=== PATIENT | male | born 1980 | race Caucasian/White ===

== ENCOUNTER 2018-04-18 06:57 | Emergency (ER) | payer SELFPAY ==
[2018-04-18 06:59] VITALS: BP 157/89; PULSE 86; RESP 16; TEMP 36.4; O2SAT 95; BMI 45.6
--- NOTE | 2018-04-18 07:35 | ED.VISSUMM ---
- ER Visit Summary Date of Service: 04/18/18 Chief Complaint: Right ear pain History of Present Illness: The patient is a 37 M who recently moved back into town from [place]. He does not have a primary care physician. He reports that over the past 3 days he has had a cough that is productive of green sputum, sore throat, and congestion. He reports that the symptoms are improving. However, yesterday he developed a pain in his right ear. Describes it as a dullness that is worsened by leaning his head to the right or forward. He is taking Advil Cold and Sinus and NyQuil with some relief. Pain is now 10 worsening a 10 currently. Physical Examination: Vitals: Stable. Afebrile. General: Well-nourished and well-developed. Head: Normocephalic atraumatic. HEENT: Pharyngeal erythema. Tonsils are absent. No cervical lymphadenopathy. Erythema, dullness, and lasts of landmarks behind the right TM. Left TM is normal. Neck: Supple, no lymphadenopathy. No JVD. Nontender. Cardiovascular: Regular rate and rhythm. No murmurs. Respiratory: No respiratory distress. Clear to auscultation bilaterally. Abdominal: Soft, nontender, nondistended, normal bowel sounds. No guarding, rebound, or peritoneal signs. Back: Nontender. Extremities: Nontender, no edema. Skin: Normal color, no rash. Neurologic: Alert and oriented ?3. Cranial nerves II through XII are intact. Normal strength and sensation. Psych: Normal affect. Emergency Department Course and Treatment: Patient was treated with naproxen and amoxicillin. He is resting comfortably. Treatment Plan: Patient will be discharged with amoxicillin and 10 [place]. Instructed to follow-up with Dr. Lito Jurado in 1 week for another exam. Return to the emergency department for any worsening symptoms. Disposition: To home in improved and stable condition. Impression: 1. URI. 2. Right otitis media. This note was generated with [employer] dictation software. It may contain incorrect words, spelling, and punctuation that were not noted in review of the chart prior to signing ED Disposition - Plan for ED Patient: Disposition: Home or Assisted Living Chief Complaint: Ear Problem Instructions: ED Otitis Media Acute Adult Prescriptions: Hydrocodone Bitart/Apap 5-325 [[place] 5MG-325MG] 1 tablet PO Q4H PRN PRN 2 Days #10 tablet PRN Reason: Pain Amoxicillin 500 mg PO TID #30 tablet Referrals: Lito Jurado MD [STAFF PHYSICIAN] - 1-2 Weeks
[2018-04-18] MEDS: Naproxen 250 MG Tablet 500 MG PO (07:59)
[2018-04-18] MEDS: AMOXICILLIN 500 MG CAPSULE PO (07:59)
== END 2018-04-18 08:00 | disposition home or self-care (01) ==
LOC: ED 07:17
PROVIDERS: Emergency Provider Emergency Medicine
DX: J06.9 Acute upper respiratory infection, unspecified (principal); H66.91 Otitis media, unspecified, right ear; F17.200 Nicotine dependence, unspecified, uncomplicated
CPT/HCPCS: 99283

== ENCOUNTER → 2019-03-17 14:14 | Outpatient (CLI) | payer BC, SELFPAY ==
[2019-03-17 16:08] LABS: ALB/GLOB Ratio 1.1 RATIO (0.9-2.4); AST(SGOT) 18 U/L (15-37); Alanine Aminotransfer ALT/SGPT 44 U/L (16-61); Albumin, Serum 3.8 g/dL (3.2-5.0); Alkaline Phosphatase 100 U/L (45-117); Anion Gap 7 (5-15); BUN 15 mg/dL (7-18); BUN/Creat Ratio 15.9 RATIO (10-20); Calcium,Total 8.8 mg/dL (8.5-10.1); Chloride 106 mmol/L (98-107); Cholesterol 166 mg/dL (200); Creatinine, Serum 0.94 mg/dL (0.70-1.30); EST Glomerular Filtration Rate 96 mL/min (>60); Est Glom Filt Rate - Afr Amer 116 mL/min (>60); Globulin 3.6 g/dL (2.2-4.2); Glucose 139 mg/dL (74-106); High Density Lipoprotein 41 mg/dL; Potassium 4.1 mmol/L (3.5-5.1); Protein, Total 7.4 g/dL (6.4-8.2); Sodium Level 141 mmol/L (136-145); Triglycerides 97 mg/dL; Very Low Density Lipoprotein 19 mg/dL (5-40)
[2019-03-17 16:14] LABS: Hemoglobin A1c 6.9 % (4.2-6.3)
[2019-03-17 16:52] LABS: HIV - WCH Non-Reactive (Nonreactive)
[2019-03-24 01:54] LABS: Rapid Plasmin Reagin (RPR) NONREACTIVE (NONREACTIVE)
== END ==
PROVIDERS: Family Provider Family Medicine; PCP Family Medicine; Referring Provider Family Medicine; Visit Provider Family Medicine
DX: I10 Essential (primary) hypertension (principal); E66.9 Obesity, unspecified; Z72.51 High risk heterosexual behavior
CPT/HCPCS: 36415; 80053; 80061; 83036; 86592; 86703

== ENCOUNTER → 2019-04-13 02:53 | Outpatient (CLI) | payer BC, SELFPAY ==
[2019-04-13] MEDS: Zolpidem Tartrate 5 MG Tablet PO (02:18)
== END ==
PROVIDERS: Family Provider Family Medicine; PCP Family Medicine; Referring Provider Family Medicine; Visit Provider Family Medicine
DX: G47.30 Sleep apnea, unspecified (principal)
CPT/HCPCS: 95811

== ENCOUNTER → 2019-04-28 12:47 | Outpatient (CLI) | payer BC, SELFPAY | PROVIDERS: Family Provider Family Medicine; PCP Family Medicine; Visit Provider Family Medicine | DX: G47.30 Sleep apnea, unspecified (principal) ==

== ENCOUNTER → 2019-08-03 13:56 | Outpatient (CLI) | payer BC, SELFPAY ==
--- NOTE | 2019-08-03 14:00 | RAD_ITS ---
STUDY: X-RAY - CERVICAL SPINE REASON FOR EXAM: Male, 39 years old. NECK PAIN X 1 MONTH, NO KNOWN INJURY TECHNIQUE: 5 view(s) of the cervical spine were obtained. COMPARISON: None FINDINGS: Normal anterior atlantoaxial articulation. Normal odontoid process. Normal cervical lordosis. Normal vertebral bodies and endplates. Normal disc space heights. Normal visualized intervertebral neuroforamina. The soft tissue structures are unremarkable. RAD/Cerv Spine 4 or 5 Views IMPRESSION: Normal x-ray examination of the visualized cervical spine. Electronically Signed: Kavya Fisher MD at 8:27 EST Tel , Service support ,
--- NOTE | 2019-08-03 14:00 | RAD_ITS ---
STUDY: X-RAY - LEFT SHOULDER REASON FOR EXAM: Pain for several years, no specific injury. TECHNIQUE: 4 view(s) of the shoulder. COMPARISON: None. FINDINGS: Normal glenohumeral articulation. Normal acromioclavicular joint. Normal acromion. Normal humeral head and visualized proximal humerus. The soft tissue structures are unremarkable. Normal visualized pulmonary apex. RAD/Shoulder min 2 Views IMPRESSION: Normal x-ray examination of the left shoulder. Electronically Signed: Jhony Garcia MD at 14:30 EST Tel , Service support ,
== END ==
PROVIDERS: PCP Family Medicine; Referring Provider Nurse Practitioner Family; Visit Provider Nurse Practitioner Family
DX: M25.512 Pain in left shoulder (principal)
CPT/HCPCS: 72050; 73030

== ENCOUNTER 2019-08-23 13:30 | Outpatient (RCR) | payer BC, SELFPAY ==
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
== END 2019-08-23 19:00 | disposition home or self-care (01) ==
LOC: PT 13:30
PROVIDERS: PCP Family Medicine; Referring Provider Nurse Practitioner Family; Visit Provider Nurse Practitioner Family
DX: M25.512 Pain in left shoulder (principal)
CPT/HCPCS: 97012; 97110; 97112; 97162

== ENCOUNTER → 2020-01-23 | Outpatient (CLI) | payer BC, SELFPAY | END | disposition home or self-care (01) | LOC: LABSPEC 15:12 | PROVIDERS: PCP Family Medicine; Referring Provider Family Medicine; Visit Provider Family Medicine | DX: Z20.828 Contact with and (suspected) exposure to other viral communicable diseases (principal) | CPT/HCPCS: 87635; U0003 ==

== ENCOUNTER → 2020-03-29 14:58 | Outpatient (CLI) | payer BC, SELFPAY ==
[2020-03-29 17:41] LABS: Absolute Lymphocyte Count 2.18 X10^3/uL (0.83-4.51); Absolute Neutrophil Count 4.6 X10^3/uL (2.0-7.7); Basophil# 0.07 X10^3/uL; Basophil% 0.9 % (0-1); Eosinophil# 0.15 X10^3/uL; Eosinophils% 1.9 % (0-5); Hematocrit 44.8 % (40-54); Hemoglobin 14.4 g/dL (13.0-16.5); Lymphocyte # 2.18 X10^3/ul (4.0); Mean Corp Hgb Conc 32.1 g/dL (32-36); Mean Corpuscular Hgb 28.9 pg (27.0-32.0); Mean Platelet Vol. 9.7 fl (6.2-12.0); Monocyte# 0.79 X10^3/uL; Monocyte% 10.2 % (0-10); NRBC Flagged by Analyzer 0 % (0-5); Neutrophil # 4.57 X10^3/uL (2.7-7.7); Neutrophil % 58.7 % (47-70); Platelet Count 289 K/mm3 (150-450); RBC Distribution Width CV 13.1 % (11.6-14.6); RBC Distribution Width SD 42.8 fl (35.1-43.9); Red Blood Count 4.98 M/mm3 (4.6-6.2); White Blood Count 7.8 K/mm3 (4.4-11.0)
[2020-03-29 17:51] LABS: ALB/GLOB Ratio 1.1 RATIO (0.9-2.4); AST(SGOT) 19 U/L (15-37); Alanine Aminotransfer ALT/SGPT 40 U/L (16-61); Albumin, Serum 3.8 g/dL (3.2-5.0); Alkaline Phosphatase 91 U/L (45-117); Amylase 31 U/L (25-115); Anion Gap 3 (5-15); BUN 15 mg/dL (7-18); Calcium,Total 8.8 mg/dL (8.5-10.1); Chloride 106 mmol/L (98-107); Cholesterol 185 mg/dL (200); Creatinine, Serum 0.94 mg/dL (0.70-1.30); EST Glomerular Filtration Rate 96 mL/min (>60); Est Glom Filt Rate - Afr Amer 116 mL/min (>60); Globulin 3.4 g/dL (2.2-4.2); Glucose 128 mg/dL (74-106); High Density Lipoprotein 47 mg/dL; Lipase 94 U/L (73-393); Potassium 4.4 mmol/L (3.5-5.1); Protein, Total 7.2 g/dL (6.4-8.2); Sodium Level 137 mmol/L (136-145); Triglycerides 87 mg/dL; Very Low Density Lipoprotein 17 mg/dL (5-40)
[2020-03-29 17:54] LABS: Hemoglobin A1c 6.3 % (3.8-5.6)
== END ==
PROVIDERS: PCP Family Medicine; Referring Provider Family Medicine; Visit Provider Registered Nurse
DX: E11.9 Type 2 diabetes mellitus without complications (principal); R10.9 Unspecified abdominal pain
CPT/HCPCS: 36415; 80053; 80061; 82150; 83036; 83690; 84443; 85025

== ENCOUNTER → 2020-08-20 | Outpatient (CLI) | payer OTHER, SELFPAY | END | disposition home or self-care (01) | PROVIDERS: Visit Provider Family Medicine | DX: Z20.822 Contact with and (suspected) exposure to COVID-19 (principal) | CPT/HCPCS: 87635; U0005; U0003 ==

== ENCOUNTER → 2020-09-26 15:48 | Outpatient (CLI) | payer OTHER, SELFPAY ==
[2020-09-26 18:09] LABS: AST(SGOT) 18 U/L (15-37); Alanine Aminotransfer ALT/SGPT 43 U/L (16-61); Albumin, Serum 3.8 g/dL (3.2-5.0); Alkaline Phosphatase 97 U/L (45-117); Anion Gap 3 (5-15); BUN 14 mg/dL (7-18); BUN/Creat Ratio 14.7 RATIO (10-20); Calcium,Total 8.9 mg/dL (8.5-10.1); Chloride 105 mmol/L (98-107); Cholesterol 193 mg/dL (200); Creatinine, Serum 0.95 mg/dL (0.70-1.30); EST Glomerular Filtration Rate 94 mL/min (>60); Est Glom Filt Rate - Afr Amer 114 mL/min (>60); Globulin 3.9 g/dL (2.2-4.2); Glucose 140 mg/dL (74-106); High Density Lipoprotein 47 mg/dL; Potassium 4.4 mmol/L (3.5-5.1); Protein, Total 7.7 g/dL (6.4-8.2); Sodium Level 137 mmol/L (136-145); Triglycerides 98 mg/dL; Very Low Density Lipoprotein 20 mg/dL (5-40)
== END ==
PROVIDERS: PCP Family Medicine; Referring Provider Family Medicine; Visit Provider Family Medicine
DX: E11.9 Type 2 diabetes mellitus without complications (principal)
CPT/HCPCS: 36415; 80053; 80061

== ENCOUNTER → 2020-10-08 | Outpatient (CLI) | payer OTHER, SELFPAY | END | disposition home or self-care (01) | PROVIDERS: Visit Provider Family Medicine | DX: Z20.822 Contact with and (suspected) exposure to COVID-19 (principal) | CPT/HCPCS: 87635; U0002 ==

== ENCOUNTER → 2021-01-24 14:51 | Outpatient (CLI) | payer OTHER, SELFPAY ==
--- NOTE | 2021-01-24 15:01 | RAD_ITS ---
STUDY: X-RAY - ORBITS REASON FOR EXAM: Male, 40 years old. PRE MRI ORBITS TECHNIQUE: 2 view(s) of the orbits were obtained. COMPARISON: None. FINDINGS: Normal bilateral orbits without a metallic orbital foreign body. Normal visualized facial bones. Normal paranasal sinuses. The soft tissue structures are unremarkable. RAD/Orbits for Foreign Body IMPRESSION: No demonstrated metallic orbital foreign body. The patient is cleared for an MRI examination. Electronically Signed: Shashank Little MD at 15:23 EDT , Service support ,
--- NOTE | 2021-01-24 15:10 | MRI_ITS ---
HISTORY: CHRONIC RADICULAR CERVICAL PAIN. TECHNIQUE: Routine MRI of the cervical spine was performed. # of images incl. paperwork: 272. IV Contrast dosage and agent: None. COMPARISON: XR 08/03/2019. FINDINGS: VERTEBRAE: Vertebral body heights maintained. No significant bone marrow signal abnormality. ALIGNMENT: Straightening of the cervical lordosis without anterior or posterior subluxation. CORD: Morphology and signal within normal limits. SOFT TISSUES: Mild adenoidal hypertrophy. No prevertebral fluid collection. INTERVERTEBRAL DISCS: Developmentally narrow spinal canal noted. C2-3: No significant posterior disc protrusion, central canal stenosis, or foraminal narrowing. C3-4, C4-5: No significant posterior disc protrusion, central canal stenosis, or foraminal narrowing. C5-6: Left paracentral disc extrusion with mild inferior migration measuring 8 mm craniocaudally resulting in mild central canal stenosis, mild impingement of the left ventral cord, left nerve root impingement, and moderate left foraminal narrowing. C6-7, C7-T1: No significant posterior disc protrusion, central canal stenosis, or foraminal narrowing. MRI/Spine Cervical (Routine) IMPRESSION: Left paracentral disc extrusion at C5-6 resulting in mild central canal stenosis with mild cord impingement, left nerve root impingement, and moderate left foraminal narrowing. at 1644 Reported and signed by: Niurka Hernandez MD Electronically Signed: Niurka Hernandez MD at 16:43 EDT Tel , Service support ,
== END ==
PROVIDERS: PCP Family Medicine; Visit Provider Family Medicine
DX: M54.12 Radiculopathy, cervical region (principal)
CPT/HCPCS: 70030; 72141

== ENCOUNTER 2021-06-10 20:12 | Emergency (ER) | payer OTHER, SELFPAY ==
[2021-06-10 20:13] VITALS: BP 162/107; PULSE 109; RESP 18; TEMP 36.6; O2SAT 97; BMI 45.5
--- NOTE | 2021-06-10 21:30 | EKG12_ITS ---
Test Reason : CP Blood Pressure : / mmHG Vent. Rate : 095 BPM Atrial Rate : 095 BPM P-R Int : 166 ms QRS Dur : 086 ms QT Int : 340 ms P-R-T Axes : 060 023 066 degrees QTc Int : 427 ms Normal sinus rhythm Normal ECG Confirmed by JOSE RAFAEL WELCH, MONICA ([id number]), editorial intern ANCELMO BARAKAT ([id number]) on 06/12/2021 8:52:59 AM Referred By: CASSIA Confirmed By:MONICA MANTILLA MD
--- NOTE | 2021-06-10 21:50 | RAD_ITS ---
EXAM: XR CHEST, 1 VIEW CLINICAL INDICATION: chest pain TECHNIQUE: Frontal view of the chest. This report was created using [employer] report generation technology. COMPARISON: None. FINDINGS: LUNGS AND PLEURAL SPACES: Unremarkable. No consolidation or edema. No pneumothorax. No effusion. HEART: Unremarkable. Cardiac silhouette not enlarged. MEDIASTINUM: Central airways and mediastinal contour are unremarkable. BONES/JOINTS: Unremarkable. SOFT TISSUES: Unremarkable. RAD/Chest 1 View (Portable) IMPRESSION: No radiographic evidence of acute cardiopulmonary disease. Electronically Signed: Arash Tavarez MD at 22:13 EST Tel , Service support ,
[2021-06-10 22:16] VITALS: BP 157/118; PULSE 91; RESP 18; O2SAT 95
[2021-06-10 22:17] VITALS: O2SAT 96
[2021-06-10 22:19] LABS: Absolute Neutrophil Count 6.3 X10^3/uL (2.0-7.7); Basophil# 0.07 X10^3/uL; Basophil% 0.6 % (0-1); Eosinophil# 0.14 X10^3/uL; Eosinophils% 1.3 % (0-5); Hematocrit 44.5 % (40-54); Hemoglobin 14.8 g/dL (13.0-16.5); Lymphocyte % 32.3 % (19-41); Mean Corp Hgb Conc 33.3 g/dL (32-36); Mean Corpuscular Hgb 28.8 pg (27.0-32.0); Mean Corpuscular Volume 86.6 fL (80-94); Mean Platelet Vol. 9.5 fl (6.2-12.0); Monocyte# 0.98 X10^3/uL; Monocyte% 8.8 % (0-10); NRBC Flagged by Analyzer 0 % (0-5); Neutrophil # 6.31 X10^3/uL (2.7-7.7); Neutrophil % 56.6 % (47-70); Platelet Count 297 K/mm3 (150-450); RBC Distribution Width CV 12.7 % (11.6-14.6); RBC Distribution Width SD 40.1 fl (35.1-43.9); Red Blood Count 5.14 M/mm3 (4.6-6.2); White Blood Count 11.2 K/mm3 (4.4-11.0)
--- NOTE | 2021-06-10 22:21 | ED.VIS.CHEST ---
HPI History of Present Illness Chief Complaint: Chest Pain Informant: patient Onset/Context/Timing Onset: Days (4) Activity at onset: sudden Timing: Intermittent and Lasts (Mostly several minutes, 1 occurred 4 days ago lasted for several hours) Quality: Positive for Burning Location: Left Chest (Without radiation. No arm, jaw, back pain) Current Severity: Gone Maximum Severity: Moderate Worsened By: Nothing Relieved By: Nothing Associated Symptoms: Positive for Cough; Negative for Nausea, Vomiting, Diaphoresis, Dyspnea, Fever, Lightheadedness, Acid Reflux and Palpitations Narrative Narrative: Patient has had this discomfort off and on for the last 4 days, left side of his chest, below his breast area. Does not radiate. Seems to come on randomly, mostly during the day., And as the patient is thinking about it he states he seems to notice it more during meals when he is eating. He states he smoked for about 3 years, he quit in October of this year, but he still occasionally smokes marijuana and thinks maybe he was doing that around the time when this started. He has not done it since. He denies any recent travel, immobilization, hospitalization, or surgery recently. No history of DVT or PE, no leg pain or swelling. He has had a cough but no fevers although today he had some chills that were unexplained, those are gone. Denies any dyspnea with this. No palpitations or syncope/presyncope. He states now that he is thinking about it, he has had some mild periumbilical abdominal discomfort associated with some burning up the middle of his chest recently just since this started as well. No known history of gastric reflux. He does have cardiac risk factors, he has a type 2 diabetic who is relatively uncontrolled and recently had his medications increased, mother side has a history of heart disease at young ages in 40s, and he is treated for hypertension and is obese. Prior Similar Symptoms: No Recent Illness/Hospitalization: No CVD Risk Factors: Positive for Hypertension, Diabetes and Family History 1' </=55; Negative for Hypercholesterolemia and Smoking PE Risk Factors: Negative for Recent Travel/Surgery, Recent Immobilization, Prior DVT or PE, Cancer and OCP + Smoking + >/=35 PFSH PFSH Medical History Current moderate episode of major depressive disorder Diabetes Essential hypertension Impacted teeth Plantar fasciitis Sleep apnea Tobacco use Home Medications lisinopril 40 mg tablet 40 mg PO DAILY 08/05/20 [History Last Taken Unknown] metformin 500 mg tablet 500 mg PO DAILY 08/05/20 [History Last Taken Unknown] amitriptyline 25 mg tablet See Rx Instructions PO DAILY tab 02/19/21 [History Last Taken Unknown] meloxicam 7.5 mg tablet ea PO 02/19/21 [History Last Taken Unknown] pantoprazole [Protonix] 40 mg PO DAILY #14 tab 06/10/21 [Rx Last Taken Unknown] Allergy/AdvReac Type Severity Reaction Status Date / Time [place] Allergy Unknown Cough Uncoded 06/10/21 20:15 Family History Uncle Leukemia CVA (cerebral vascular accident) Surgical History H/O inguinal hernia repair Hx of tonsillectomy Social History household members: other details: parents housing: house Smoking Status: Former smoker quit date: 10/12/20 pack-years: 3 alcohol intake: never what type of physical activity do you participate in: none do you feel safe at home: Yes ROS ROS ED Constitutional Constitutional ED: Reports chills; Denies fever(s) Eyes Eyes: Denies change in vision or diplopia ENT ENT ED: Denies rhinorrhea or sore throat Cardiovascular Cardiovascular: Reports chest pain; Denies palpitations Respiratory/Chest Respiratory/Chest: Reports cough; Denies dyspnea Gastrointestinal Gastrointestinal: Reports abdominal pain; Denies diarrhea, nausea or vomiting Genitourinary Genitourinary ED: Denies dysuria or hematuria Musculoskeletal Musculoskeletal: Denies back pain or neck pain Integumentary Denies abscess or rash Neurologic Neurologic: Denies headache(s), paresthesias or weakness Psychiatric Psychiatric: Denies anxiety or suicidal thoughts EXAM Physical Exam Const Vital Signs: 06/10/21 20:13 06/10/21 20:43 06/10/21 22:16 Temperature 97.8 F Temperature Source Temporal Pulse Rate 109 H 91 Respiratory Rate 18 18 Respiratory Effort Normal Non-Labored Blood Pressure 162/107 H 157/118 H Blood Pressure Mean 125 131 Pulse Ox 97 95 Oxygen Delivery Method Room Air 06/10/21 22:17 Temperature Temperature Source Pulse Rate Respiratory Rate Respiratory Effort Blood Pressure Blood Pressure Mean Pulse Ox 96 Oxygen Delivery Method Room Air Positive well nourished, well developed and obese Constitutional Narrative: Well-appearing, pleasant, no distress General Appearance ED: well developed and NAD Nutritional Appearance: obese HEENT Reports moist mucous membranes normocephalic and atraumatic Eyes PERRL and EOMs intact bilaterally Neck full ROM, supple and no JVD Resp normal respiratory effort and clear to auscultation bilaterally Cardio regular rate, regular rhythm and no murmurs Rate: Negative for tachycardic GI non-tender and non-distended Auscultation: normoactive bowel sounds Palpation: soft Back/Spine no CVA tenderness General Back: other FROM Extremity normal to inspection, no calf tenderness and no pedal edema General Extremety ED: Negative for edema, pulses abnormal or tenderness General Extremity: Negative for edema or pulses abnormal Neuro oriented x3, CN's II-XII intact bilaterally and no sensory deficits noted Sensorium / Orientation: awake and alert Motor Exam: strength 5/5 throughout Skin no rashes or lesions noted and no wounds Heart Score History: Slightly/Non-Suspicious ECG: Normal Age: </= 45 years Risk Factors: >/= 3 Risk Factors or History of CAD Troponin: </= Normal Limit Score: 2 MDM MDM MDM Narrative Medical decision making narrative: EKG, chest x-ray, labs normal. Patient was given Protonix. He had no recurrence of his symptoms here. Reassured, this is low risk chest discomfort and not likely cardiac in etiology, although work-up certainly reasonable since he had risks. I think it is more likely to be GI in etiology. We will give a prescription for Protonix and have him follow-up closely with his doctor he is comfortable with that plan. Lab Data Attestation: I reviewed the patient's lab results. Labs: Laboratory Results - last 24 hr 06/10/21 06/10/21 22:10 22:10 WBC 11.2 H RBC 5.14 Hgb 14.8 Hct 44.5 MCV 86.6 MCH 28.8 MCHC 33.3 RDW Std Deviation 40.1 RDW Coeff of Hcandler 12.7 Plt Count 297 MPV 9.5 Immature Gran % (Auto) 0.400 Neut % (Auto) 56.6 Lymph % (Auto) 32.3 [place] % (Auto) 8.8 Eos % (Auto) 1.3 Baso % (Auto) 0.6 Absolute Neuts (auto) 6.3 Absolute Lymphs (auto) 3.60 Nucleated RBC % 0 Sodium 138 Potassium 4.1 Chloride 102 Carbon Dioxide 28.0 Anion Gap 8 BUN 17 Creatinine 0.91 Estim Creat Clear Calc 123.17 Est GFR (MDRD) Af Amer 119 Est GFR (MDRD) Non-Af 98 BUN/Creatinine Ratio 18.6 Glucose 148 H Calcium 9.1 Troponin I High Sens 4 Radiography Diagnostic Testing: Clinical Impression(s) from Imaging Studies Chest X-Ray 06/10/21 21:50 IMPRESSION: No radiographic evidence of acute cardiopulmonary disease. Electronically Signed: Arash Tavarez MD at 22:13 EST Tel , Service support , EKG Initial EKG: Attestation: I personally reviewed and interpreted this EKG as follows: Interpretation: Sinus Rhythm and No Acute Injury Pattern Comments: Normal EKG Discharge Plan Triage Chief Complaint: Chest Pain ED Provider: Jason Bernardo Dx/Rx/DC Orders Clinical Impression: Chest pain, unspecified Instructions: ED Chest Pain, Noncardiac Prescriptions: New pantoprazole [Protonix] 40 mg tablet,delayed release (DR/EC) 40 mg PO DAILY Qty: 14 RF: 0 No Action lisinopril 40 mg tablet 40 mg PO DAILY RF: 0 metformin 500 mg tablet 500 mg PO DAILY RF: 0 amitriptyline 25 mg tablet See Rx Instructions PO DAILY RF: 0 meloxicam 7.5 mg tablet PO RF: 0 Primary Care Provider: Emelia Gomez Referrals: Emelia Gomez MD [Primary Care Provider] - 1 Week Disposition Disposition: Home, Self Care
[2021-06-10 22:37] LABS: Anion Gap 8 (5-15); BUN 17 mg/dL (7-18); BUN/Creat Ratio 18.6 RATIO (10-20); Calcium,Total 9.1 mg/dL (8.5-10.1); Chloride 102 mmol/L (98-107); Creatinine, Serum 0.91 mg/dL (0.70-1.30); EST Glomerular Filtration Rate 98 mL/min (>60); Est Glom Filt Rate - Afr Amer 119 mL/min (>60); Estimated Creatinine Clearance 123.17 ml/min; Glucose 148 mg/dL (74-106); Potassium 4.1 mmol/L (3.5-5.1); Sodium Level 138 mmol/L (136-145); Troponin-I HS 4 pg/mL (3.0-78.0)
[2021-06-10] MEDS: Pantoprazole Sodium 40 MG Tablet PO (22:59)
== END 2021-06-10 23:38 | disposition home or self-care (01) ==
PROVIDERS: Emergency Provider Emergency Medicine; PCP Family Medicine
DX: R07.89 Other chest pain (principal); E66.9 Obesity, unspecified; Z68.42 Body mass index [BMI] 45.0-49.9, adult; I10 Essential (primary) hypertension; E11.9 Type 2 diabetes mellitus without complications; G47.30 Sleep apnea, unspecified; I25.10 Atherosclerotic heart disease of native coronary artery without angina pectoris; F12.90 Cannabis use, unspecified, uncomplicated; Z79.84 Long term (current) use of oral hypoglycemic drugs; Z79.899 Other long term (current) drug therapy; Z87.891 Personal history of nicotine dependence
CPT/HCPCS: 71045; 80048; 84484; 85025; 87426; 93005; 99284; A4216

== ENCOUNTER 2021-06-30 17:52 | Outpatient (CLI) | payer BC, OTHER, SELFPAY | END 2021-06-30 23:59 | disposition short-term general hospital (02) | PROVIDERS: PCP Family Medicine; Visit Provider Family Medicine | DX: U07.1 COVID-19 (principal) | CPT/HCPCS: 87635; U0003; U0005 ==

== ENCOUNTER 2021-10-23 14:00 | Outpatient (RCR) | payer BC, SELFPAY ==
--- NOTE | 2021-10-17 16:17 | HP.PTEVAL ---
Patient's Visit Information YAMINI HELTON is a 41 year old M referred to Physical Therapy by Dr. Flaco Marquez DO with a diagnosis of BILATERAL SHOULDER SUBACROMIAL IMPINGEMENT. Date of Evaluation: 10/17/21 Physical Therapist: Chris Guillen PT, Cert MDT, OCS - Visit Plan Frequency: 2x /Week Duration: 4 Weeks Plan: PT INTERVETIONS POSTURAL EX'S ,RTC/SCAPULAR STRENGTHENING AND MODALTIES NEEDED - Subjective This 41 y/o male presents to physical therapy with bilateral shoulder pain. Patient has had shoulder pain ~ 3 years . Initially had MRI of neck showed HNP cervical then had epidural injection Ko and nerve block helped cervical . Patient seen DR thought had isolated shoulder pain ,tried epidural injections which helped . Patient has anti-inflammatory . Also had x-rays - and recommended PT. Denies paresthesia/tingling. Pain located posterior deltoid describes as tight ache. Patient symptoms aggravating with OH activities , ,lifting and reaching behind back. Symptoms affected sleeping on side but is better. Patient no h/o trauma. Patient goals to get stronger and no more pain. Patient shoulder pain affects QOL and job demands. SOCIAL: single. VOVATION: [employer] - Pain Bilateral Shoulder Pain Intensity (Out of 10): 7 Pain Intensity Range: 10 - Objective POSTURE: mild forward posture rounded shoulders. PALPTION: tender posterior shoulder. NEURO: denies paresthesia/tingling. PALAPTION: tender AC posterior. AROM: shoulder flexion 160 degrees ,abduction 160 degrees ,ER 90 degrees ,IR T11. MMT: RTC 4/5 ,DELTOID 4/5. SCAPULAR HUMERAL FUNCTION: 1:1 ratio - Special Tests R Shoulder Drop Sign - IS Test: Negative R Shoulder Empty Can - SS: Negative R Shoulder Belly Press - SupScap: Negative R Shoulder Neer - Impingement: Negative R Shoulder Johnson Reji - Impingement: Negative L Shoulder Drop Sign - IS Test: Negative L Shoulder Empty Can - SS: Negative L Shoulder Belly Press - SupScap: Negative L Shoulder Neer - Impingement: Negative L Shoulder Johnson Reji - Impingement: Negative - Balance/Special Test Scores Quick DASH Score: 27.2725 - Goals Goal 1:: I with HEP for shoulders Goal Time Frame: 4-6 Weeks Goal 2:: Patient to demonstrate 75 % improvement with improve function and min pain Goal Time Frame: 4-6 Weeks Goal 3:: Patient to improve quick dash by 5 points to improve function and job demands. Goal Time Frame: 4-6 Weeks Goal 4:: Patient to improve ability to perform job demands and ADL's without any pain. Goal Time Frame: 4-6 Weeks - Rehabilitation Potential Physical Therapy Diagnosis: This patient has bilateral shoulder impingement with possible tendonitis which better with cortisone injection with postural deficits and functional weakness impairs job demands and [place] activities thus benefit from skilled PT Rehabilitation Potential: Good - Anticipated Interventions Patient/Client Instruction: Educate patient on: Condition, Plan of Care For the Purpose of:: To decrease pain, To increase ROM, To improve muscle performance and motor function, To increase tolerance to activity/condition/position, To improve ability of physical actions for home/community/work/leisure, To improve health of tissue, To decrease soft tissue restriction, To increase flexibility/ROM Therapeutic Exercise to Include: Strength training, Body mechanics, Postural training, Flexibilty training, Active ROM, Scapular Strength/Stabilization Comment: RTC For the Purpose of:: To decrease pain, To decrease swelling/inflammation, To improve muscle performance and motor function, To improve ability to perform ADL's, To increase tolerance to activity/condition/position, To improve ability of physical actions for home/community/work/leisure, To improve health of tissue, To decrease soft tissue restriction, To increase flexibility/ROM, To reduce risk of recurrence TENS: Yes IF ES: Yes Cryotherapy (ice pack, ice massage): Yes Thermo therapy (hot pack): Yes Ultrasound (thermal/non thermal): Yes For the Purpose of:: To decrease pain, To decrease swelling/inflammation, To improve nutrient delivery to tissue, To increase oxygenation perfusion, To decrease soft tissue restriction, To increase flexibility/ROM Thank you for the opportunity to evaluate your patient. For Medicare and Medicare HMO plans, please review the plan of care and approve it. It will need to be FAXED BACK to us at [phone] for Medicare purposes. For Medicare only, by signing this I certify the plan of care. Please let me know if there are questions or concerns regarding this plan of care. Physician Signature: Date:
--- NOTE | 2022-04-15 10:58 | HP.PT.NRP ---
YAMINI HELTON was seen in my office for initial evaluation on 10/17/21. The following Plan of Care was established for this patient: Initial Frequency: 2x /Week Initial Duration: 4 Weeks Patient/Client Instruction: Educate patient on: Condition, Plan of Care For the Purpose of:: To decrease pain, To increase ROM, To improve muscle performance and motor function, To increase tolerance to activity/condition/position, To improve ability of physical actions for home/community/work/leisure, To improve health of tissue, To decrease soft tissue restriction, To increase flexibility/ROM Therapeutic Exercise to Include: Strength training, Body mechanics, Postural training, Flexibilty training, Active ROM, Scapular Strength/Stabilization For the Purpose of:: To decrease pain, To decrease swelling/inflammation, To improve muscle performance and motor function, To improve ability to perform ADL's, To increase tolerance to activity/condition/position, To improve ability of physical actions for home/community/work/leisure, To improve health of tissue, To decrease soft tissue restriction, To increase flexibility/ROM, To reduce risk of recurrence TENS: Yes IF ES: Yes Cryotherapy (ice pack, ice massage): Yes Thermo therapy (hot pack): Yes Ultrasound (thermal/non thermal): Yes For the Purpose of:: To decrease pain, To decrease swelling/inflammation, To improve nutrient delivery to tissue, To increase oxygenation perfusion, To decrease soft tissue restriction, To increase flexibility/ROM This patient was last seen in our office . Pertinent comments regarding their Physical therapy will appear below: Patient was seen for PT sosa for HEP for shoulder. At this point I will be discontinuing this patient from physical therapy. I would be happy to see this patient again in the future if found appropriate by the physician. Thank you! Chris Guillen, PT, Cert MDT, OCS Balance/Gait/Functional tests - Balance/Special Test Scores Quick DASH Score: 27.5405
== END 2021-10-23 19:00 | disposition home or self-care (01) ==
LOC: PT 14:00
PROVIDERS: PCP Family Medicine; Referring Provider Orthopaedic Surgery; Visit Provider Orthopaedic Surgery
DX: M25.811 Other specified joint disorders, right shoulder (principal); M25.812 Other specified joint disorders, left shoulder
CPT/HCPCS: 97110; 97162

== ENCOUNTER → 2022-01-28 | Outpatient (CLI) | payer BC, SELFPAY ==
--- NOTE | 2022-01-28 16:27 | RAD_ITS ---
EXAM: XR LUMBOSACRAL SPINE, 4 OR 5 VIEWS CLINICAL INDICATION: BACK PAIN TECHNIQUE: Frontal, lateral and bilateral oblique views of the lumbar spine. This report was created using [employer] report [employer] technology. COMPARISON: None. FINDINGS: VERTEBRAE: Unremarkable. Preserved vertebral body height. No fracture. No spondylolisthesis. Preservation of the normal lumbar lordosis. No significant facet arthropathy. DISC SPACES: No acute findings. Disc spaces are maintained. GASTROINTESTINAL TRACT: Unremarkable as visualized. Included bowel gas pattern is non-obstructive. RAD/L/S Spine Min 4 Views IMPRESSION: No evidence of lumbar spinal fracture or spondylolisthesis. Electronically Signed: Serafin Chopra MD at 4:30 EDT ,
== END | disposition home or self-care (01) ==
PROVIDERS: PCP Family Medicine; Referring Provider Family Medicine; Visit Provider Family Medicine
DX: M54.9 Dorsalgia, unspecified (principal)
CPT/HCPCS: 72110

== ENCOUNTER 2022-03-20 14:30 | Outpatient (RCR) | payer BC, SELFPAY ==
--- NOTE | 2022-02-12 11:54 | HP.PTEVAL ---
Patient's Visit Information YAMINI HELTON is a 41 year old M referred to Physical Therapy by Dr. Radhames Jansen MD with a diagnosis of BACK PAIN. Date of Evaluation: 02/12/22 Physical Therapist: Cayla Acosta PT, Cert MDT - Visit Plan Frequency: 2-3x /Week Duration: 4-6 Weeks Plan: AQUATIC THERAPY FOR PAIN RELIEF, POSTURE CORRECTION/STRENGTHENING, INSTRUCTION IN APPROPRIATE BODY MECHANICS AND ACTIVITY MODIFICATIONS. DLS STARTING WITH A NEUTRAL SPINE PROGRESSING ROM TOLERATED. BRYCE LE ROM, STRETCHING AND STRENGTHENING. HEP INSTRUCTION. 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 NO TENTATIVE RTW DATE YET. Disability: NO. Present symptoms: LEFT LOW BACK PAIN, LEFT THIGH PAIN AND RIGHT LATERAL CALF PAIN. ALSO NUMBNESS AND TINGLING IN LEFT THIGH AND LEG. PATIENT REPORTS A HISTORY OF LEFT PROXIMAL LATERAL THIGH NUMBNESS X 10 YEARS FOR NO APPARENT REASON. Present since: 3 YEARS AGO BUT 1/2 WAY THROUGH THE DAY AT WORK 3 WEEKS AGO HIS BACK STARTED HURTING REALLY BAD FOR NO APPARENT REASON LIKE IT HAS IN THE PAST BUT THIS TIME IT WOULDN'T GO AWAY. Pain Scale: WORST 9/10, LEAST 2/10. Currently: 3/10. Commenced as a result of: NO APPARENT REASON. Symptoms at onset: PAIN DOWN THE LEFT LEG, BY THE NEXT MORNING THE PAIN WAS DOWN BOTH LEGS AND COULD BARELY WALK. Worse: STANDING IN ONE SPOT, PROLONGED SITTING, BENDING, LIFTING AND TWISTING. Better: GOING TO SLEEP/JOVAN\AKANKSHA DOWN ON BACK WITH LEGS STRAIGHT OR ON RIGHT SIDE. Disturbed sleep: NO. Previous history/Previous treatment: NO BACK SURGERY. NO ISMA'S. PREDNISONE MUSCULAR INJECTIONS X 2 IN THE PAST THAT HELPED. Treatment this episode: MEDROL DOSE PACK - HELPED (ENDED 02/02/22). Coughing/sneezing/straining: NEGATIVE. Gait: NORMAL. Bowel or Bladder Dysfunction: NO. Accidents: NO. Unexplained weight loss: NO. Imaging: RECENT LUMBAR X-RAY - NORMAL PER PATIENT REPORT. PMH/Recent major surgery: IDDM, CERVICAL DISC HERNATION - CURRENTLY IN PAIN MGMT WITH DR. STOKES - ISMA AND NERVE BLOCK WHICH HAVE HELPED. OTHER: I FEEL TERRIFIED BECAUSE I HAVE NEVER FELT PAIN LIKE THAT BEFORE AND I AM TERRIFIED IT IS GOING TO COME BACK AND I WON'T BE ABLE TO WALK AGAIN. I HAVE BEEN DOING NOTHING BECAUSE I AM TERRIFIED. - Objective Sitting/Standing Posture: POOR. FH. RS'S. Lordosis: NORMAL. Lateral shift: NO. Relevant shift: N/A. Active Correction of posture: WORSE. Other Observations: THIS PATIENT AMBULATES INDEP'LY INTO PT TODAY WITHOUT ANY AD'S OR LOB. FAIR CADANCE. INDEP TRANSFER SIT TO STAND WITHOUT UE ASSIST. Sensory deficit: DECREASED L PROX LATERAL THIGH LIGHT TOUCH. ROM deficit: TIGHT BRYCE LE HIP FLEXORS, HS'S AND GASTROC SOLEUS COMPLEX'S. Motor deficit: BRYCE LE'S 5/5 WITH MMT'ING EXCEPT HIPS 4/5. Reflexes: 2/3 BRYCE LE'S. Dural Signs: POSITIVE BRYCE LE'S. Lumbar mvmt loss: flex - MOD. ext - MOD. R SG - MOD. L SG - MIN. PATIENT C/O INCREASED LEFT LOW BACK PAIN WITH LUMBAR EXTENSION AND R SG TESTING. Core strength: POOR. Palpation: NO ACUTE LOWER THORACIC, LUMBAR, LUMBOSACRAL OR BRYCE LUMBAR PARASPINAL TENDERNESS WITH LIGHT PALPATION. TREATMENT: NEUROMUSCULAR REEDUCATION - RETRAINING OF MVMT AND POSTURE FOR SITTING, LYING AND STANDING ACTIVITIES. - Balance/Special Test Scores Oswestry Low Back Score: 18 - Goals Goal 1:: DECREASE C/O L LOW BACK AND L LE SX'S. Goal Time Frame: 4-6 Weeks Goal 2:: IMPROVE LIFTING, WALKING, SITTING, STANDING, SOCIAL LIFE, TRAVEL AND WORK/HOMEMAKING FUNCTION. Goal Time Frame: 4-6 Weeks Goal 3:: INSTRUCT IN PROPHYLAXIS Goal Time Frame: 4-6 Weeks - Anticipated Interventions Patient/Client Instruction: Educate patient on: Condition, Plan of Care, Risk Factors For the Purpose of:: To improve self management Therapeutic Exercise to Include: Strength training, Body mechanics, Postural training, Flexibilty training, Neuromotor development, In an aquatic setting, Dynamic Lumbar Stabilization For the Purpose of:: To decrease pain, To increase ROM, To improve muscle performance and motor function, To increase tolerance to activity/condition/position, To improve ability of physical actions for home/community/work/leisure Thank you for the opportunity to evaluate your patient. For Medicare and Medicare HMO plans, please review the plan of care and approve it. It will need to be FAXED BACK to us at [phone] for Medicare purposes. For Medicare only, by signing this I certify the plan of care. Please let me know if there are questions or concerns regarding this plan of care. Physician Signature: Date:
--- NOTE | 2022-06-12 16:32 | HP.PT.NRP ---
YAMINI HELTON was seen in my office for initial evaluation on 02/12/22. The following Plan of Care was established for this patient: Initial Frequency: 2-3x /Week Initial Duration: 4-6 Weeks Patient/Client Instruction: Educate patient on: Condition, Plan of Care, Risk Factors For the Purpose of:: To improve self management Therapeutic Exercise to Include: Strength training, Body mechanics, Postural training, Flexibilty training, Neuromotor development, In an aquatic setting, Dynamic Lumbar Stabilization For the Purpose of:: To decrease pain, To increase ROM, To improve muscle performance and motor function, To increase tolerance to activity/condition/position, To improve ability of physical actions for home/community/work/leisure This patient was last seen in our office 03/20/22. Pertinent comments regarding their Physical therapy will appear below: This patient has not returned to Physical Therapy and is appropriate to return to MD for further follow-up as needed. At this point I will be discontinuing this patient from physical therapy. I would be happy to see this patient again in the future if found appropriate by the physician. Thank you! Cayla Acosta, PT, Cert MDT Balance/Gait/Functional tests - Balance/Special Test Scores Oswestry Low Back Score: 18
== END 2022-03-20 19:00 | disposition home or self-care (01) ==
LOC: PT 14:30
PROVIDERS: PCP Family Medicine; Referring Provider Family Medicine; Visit Provider Family Medicine
DX: M54.9 Dorsalgia, unspecified (principal)
CPT/HCPCS: 97110; 97112; 97113; 97162; 97530

== ENCOUNTER → 2022-06-29 | Outpatient (CLI) | payer BC, SELFPAY ==
[2022-06-29 18:46] LABS: ALB/GLOB Ratio 1.1 RATIO (0.9-2.4); AST(SGOT) 16 U/L (15-37); Alanine Aminotransfer ALT/SGPT 38 U/L (16-61); Albumin, Serum 3.9 g/dL (3.2-5.0); Alkaline Phosphatase 93 U/L (45-117); Anion Gap 8 (5-15); BUN 17 mg/dL (7-18); BUN/Creat Ratio 19.5 RATIO (10-20); Calcium,Total 8.8 mg/dL (8.5-10.1); Chloride 106 mmol/L (98-107); Cholesterol 208 mg/dL (200); Creatinine, Serum 0.87 mg/dL (0.70-1.30); EST Glomerular Filtration Rate 103 mL/min (>60); Est Glom Filt Rate - Afr Amer 124 mL/min (>60); Globulin 3.5 g/dL (2.2-4.2); Glucose 158 mg/dL (74-106); High Density Lipoprotein 48 mg/dL; Potassium 4.1 mmol/L (3.5-5.1); Protein, Total 7.4 g/dL (6.4-8.2); Sodium Level 141 mmol/L (136-145); Thyroid Stim Hormone (TSH) 1.87 uIU/mL (0.358-3.74); Triglycerides 230 mg/dL; Very Low Density Lipoprotein 46 mg/dL (5-40)
[2022-06-29 19:46] LABS: Microalbumin,Random Urine 19.2 mg/L (NO RANGE EST.)
[2022-06-29 20:06] LABS: Vitamin D,25 Hydroxy 11.5 ng/mL
== END | disposition home or self-care (01) ==
LOC: MTLAB 14:40
PROVIDERS: PCP Family Medicine; Referring Provider Nurse Practitioner Family; Visit Provider Nurse Practitioner Family
DX: E11.9 Type 2 diabetes mellitus without complications (principal)
CPT/HCPCS: 36415; 80053; 80061; 82043; 82306; 82570; 84443

== ENCOUNTER → 2022-07-13 | Outpatient (CLI) | payer BC, SELFPAY ==
--- NOTE | 2022-07-13 16:07 | NEURO_ITS ---
NCS and/or EMG Patient Report Ordering Doctor: Juan Williamson DATE OF SERVICE: 07/13/22 Indication: Bilateral sensory disturbances in both hands for the last year. History of prior C5/6 disc disease. Evaluate for cervical radiculopathy and/or entrapment neuropathy. Findings: Nerve conduction studies were performed in the right and left upper extremities. The right median motor study recording the abductor pollicis brevis showed a normal amplitude, normal distal latency and normal conduction velocity. The right ulnar motor study recording the abductor digiti minimi showed a normal amplitude, normal distal latency and normal conduction velocity. No conduction block or focal slowing was present across the elbow. The right median sensory response recording digit two showed a normal amplitude, prolonged latency and borderline conduction velocity. The right ulnar sensory response recording digit five showed a normal amplitude, latency and conduction velocity. The right radial sensory response recording over the extensor snuff box showed a normal amplitude, latency and conduction velocity. The left median motor study recording the abductor pollicis brevis showed a normal amplitude, normal distal latency and normal conduction velocity. The left ulnar motor study recording the abductor digiti minimi showed a normal amplitude, normal distal latency and normal conduction velocity. No conduction block or focal slowing was present across the elbow. The left median sensory response recording digit two showed a normal amplitude, prolonged latency and mildly slowed conduction velocity. The left ulnar sensory response recording digit five showed a normal amplitude, latency and conduction velocity. The left radial sensory response recording over the extensor snuff box showed a normal amplitude, latency and conduction velocity. Right median-ulnar lumbrical / interosseous motor latencies showed a prolonged median latency compared to the ulnar. Left median-ulnar lumbrical / interosseous motor latencies showed a prolonged median latency compared to the ulnar. Needle EMG of the right upper extremity and cervical paraspinal muscles was performed. No denervation was seen in any muscle. All motor unit morphology, activation and recruitment patterns were normal. Given the symmetry of symptoms and the paucity of findings on the right, a limited needle EMG of the left abductor pollicis brevis muscles was performed. No denervation was seen. Motor unit morphology, activation and recruitment patterns were normal. Impression: This is an abnormal study. 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 The pathophysiology is demyelination. These findings are compatible with the clinical diagnosis of carpal tunnel syndrome. In addition, there is no electrophysiologic evidence of superimposed cervical radiculopathy in the right upper extremity. Mike Beebe D.O. Multi Select Codes Neurology Neurology Interp Codes: 14329-42 [facility] [place] tst done w/nerv tst paul (interp) (59), 05116-08 [facility] test done w/n test comp (interp) and 47370-17 Nr cndj test 13/> studies (interp)
== END | disposition home or self-care (01) ==
LOC: PSN 14:19
PROVIDERS: PCP Family Medicine; Referring Provider Orthopaedic Surgery; Visit Provider Orthopaedic Surgery
DX: M54.2 Cervicalgia (principal)
CPT/HCPCS: 95885; 95886; 95913

== ENCOUNTER → 2022-08-05 | Outpatient (CLI) | payer BC, SELFPAY ==
--- NOTE | 2022-08-05 17:06 | MRI_ITS ---
STUDY: MRI CERVICAL SPINE WITHOUT CONTRAST REASON FOR EXAM: Male, 42 years old. NECK PAIN TECHNIQUE: Standardized fat and water weighted pulse sequences were obtained in the sagittal and axial planes. COMPARISON: January 24, 2021 FINDINGS: Normal foramen magnum and brainstem-cervical cord junction. Normal craniovertebral junction. Normal anterior atlantoaxial articulation. Normal odontoid process. Straightening of normal lordotic curvature possibly due to muscle spasm or positioning artifact.. Normal vertebral bodies and posterior osseous elements. C2-3: Normal endplates. Normal disc height, signal and morphology. Normal central canal and intervertebral neural foramina. C3-4: Normal endplates. Normal disc height, signal and morphology. Normal central canal and intervertebral neural foramina. C4-5: Normal endplates. Normal disc height, signal and morphology. Normal central canal and intervertebral neural foramina. C5-6: Normal endplates. Normal disc height, signal and small left posterolateral/foraminal disc protrusion.. Mild narrowing of the spinal canal on the left.. Moderate left neural foraminal stenosis. C6-7: Normal endplates. Normal disc height, signal and morphology. Normal central canal and intervertebral neural foramina. C7-T1: Normal endplates. Normal disc height, signal and morphology. Normal central canal and intervertebral neural foramina. Normal cervical cord. Normal visualized soft tissue structures. The disc protrusion at C5-6 appears slightly smaller when compared with previous study. No other significant interval change MRI/Spine Cervical (Routine) IMPRESSION: Loss of normal lordotic curvature of uncertain significance.. No acute fracture or other significant bony pathology. Spinal stenosis at C5-C6 secondary to small left posterolateral/foraminal disc protrusion which appears stable perhaps slightly improved since previous exam. No other significant change Electronically Signed: Tonny Jama MD at 18:46 EST Reading Location ID and State: [facility] / [place] , Service support ,
== END | disposition home or self-care (01) ==
PROVIDERS: PCP Family Medicine; Visit Provider Orthopaedic Surgery
DX: M50.222 Other cervical disc displacement at C5-C6 level (principal); M54.2 Cervicalgia
CPT/HCPCS: 72141

== ENCOUNTER 2022-09-02 10:34 | Day surgery (SDC) | payer BC, SELFPAY ==
[2022-09-02] VITALS (7 sets, daily range): BP systolic 127–148; BP diastolic 82–101; PULSE 86–97; RESP 16–18; TEMP 36.1–36.5; O2SAT 97–99; BMI 43.3
[2022-09-02] MEDS: Lactated Ringers 1,000 ML 15 ML IV (11:19)
--- NOTE | 2022-09-02 11:28 | HP.PCM_ITS ---
History and Physical Date of Admission: 09/02/22 [facility] [address] [place] [address] OFFICE VISIT Date of Service:? 08/17/22 MR#: [id number] Acct: [id number] Name:YAMINI GAN Rep #: [id number] : 1980 ? ? Provider: Dr. Flaco Marquez, DO Age/Sex:? 42/M ? ? Location: [facility] [place] Status: Signed Intake Intake Visit Reasons:?BL carpal tunnel Chief Complaint: BL carpal tunnel Accompanied by: Self Is patient in pain?: Yes Pain scale (1-10): 7 Allergies [place] Allergy (Unknown, Uncoded 08/12/22 14:03) Cough Medications lisinopril 40 mg tablet 40 mg PO DAILY 08/05/20 [History Confirmed 08/17/22] metformin 500 mg tablet,extended release 24hr 1,000 mg PO BID #360 tabs 12/25/21 [Rx Confirmed 08/17/22] insulin detemir U-100 100 unit/mL (3 mL) subcutaneous pen (Levemir FlexTouch U- 100 Insulin) 50 unit (0.5 mL) subcut QHS #45 mL 04/23/22 [Rx Confirmed 08/17/22] blood sugar diagnostic (Accu-Chek Guide test strips) #100 ea 06/11/22 [Rx Confirmed 08/17/22] dulaglutide 1.5 mg/0.5 mL subcutaneous pen injector (Trulicity) 1.5 mg (0.5 mL) subcut QWEEK #2 mL 06/12/22 [Rx Confirmed 08/17/22] lancets (Accu-Chek Softclix Lancets) #200 ea 06/12/22 [Rx Confirmed 08/17/22] pen needle, diabetic 32 gauge x 5/32 (BD Ultra-Fine Kelsy Pen Needle) #100 ea 06/12/22 [Rx Confirmed 08/17/22] pantoprazole 20 mg tablet,delayed release 20 mg PO DAILY 06/29/22 [History Confirmed 08/17/22] cholecalciferol (vitamin D3) 1,250 mcg (50,000 unit) capsule 1,250 mcg PO QWEEK #24 caps 07/01/22 [Rx Confirmed 08/17/22] sertraline 25 mg tablet 25 mg PO DAILY #30 tabs 07/30/22 [Rx Confirmed 08/17/22] PFSH Medical History Current moderate episode of major depressive disorder Diabetes Essential hypertension Impacted teeth Plantar fasciitis Sleep apnea Tobacco use Surgical History? H/O inguinal hernia repair Hx of tonsillectomy Family History? Uncle Leukemia CVA (cerebral vascular accident) Social History? household members:? other details: parents housing:? house Smoking Status:? Former smoker quit date: 10/12/20 pack-years: 3 alcohol intake:? never what type of physical activity do you participate in:? none do you feel safe at home:? Yes HPI BL carpal tunnel Details: Parts of this documentation were recorded by a scribe, this documentation accurately reflects the service provided and the decisions made by me, Dr. Flaco Marquez, DO 08/17/22 0759. YAMINI HELTON is a 42 year old M here today for? BL hand numbness/tingling/pain for about 1 year. Denies any night bracing. He states that the right hand is worse than the left. He did have EMGs completed which show CTS. He has BL hand numbness into all of his fingers. He also has tightness over the fingers with finger extension. Denies any injections or trama to the BL wrists or hands. He states that the numbness and pain starts at the BL wrists. He states that the pain is worse at the end of the days than in the mornings. He states that he frequently drops things. The pain doesn't wake him up at night. He states that his hands become clammy very easily. He is right handed. He does have some pain from the neck down the BL arms but he states that the arm pain stops midway over the humerus. Ortho Exam General General: Yes no acute distress Neurologic: Yes alert and Yes oriented x3 Psychologic: Yes reasonable and appropriate Right Wrist/Hand Skin/Wound: Yes CDI, No Swelling, No Ecchymosis and Yes capillary refill normal Right Wrist: Yes Durken's Test and Phalen's; No Tinel's, Thenar Atrophy or Hypothenar Atrophy WRIST: good wrist and hand ROM Left Wrist/Hand Skin/Wound: No Swelling, No Ecchymosis and No erythema Left Wrist: Yes Durken's Test and Yes Phalen's; No Tinel's, No Thenar Atrophy and No Hypothenar Atrophy WRIST: good wrist and hand ROM Head: Normocephalic Atraumatic Chest: symmetrical rise, non-labored breathing, no audible wheeze Abdomen: no guarding, non-rigid Supplemental Info 08/05/2022 MRI cervical spine:Loss of normal lordotic curvature of uncertain significance.. No acute fracture or other significant bony pathology. Spinal stenosis at C5-C6 secondary to small left posterolateral/foraminal disc protrusion which appears stable perhaps slightly improved since previous exam. No other significant change? 07/13/2022 EMG bilateral upper extremity:This is an abnormal study. 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 The pathophysiology is demyelination. These findings are compatible with the clinical diagnosis of carpal tunnel syndrome. In addition, there is no electrophysiologic evidence of superimposed cervical radiculopathy in the right upper extremity. Coding Level of Care Code Off vis,est,level 4 Diagnoses CTS (carpal tunnel syndrome)? G56.00 Assessment and Plan Assessment and Plan (1) CTS (carpal tunnel syndrome): ?Status:?Acute Plan Personally reviewed patients EMG and educated that he does have BL carpal tunnel syndrome. Educated that he may also be having overlapping pain and tingling into the BL hands which would be coming from the cervical spine. Treatment options are do nothing or night bracing or diagnostic carpal tunnel injection or CTR. He wishes to proceed with right carpal tunnel release at this time. He will have a 0.5lb lifting restriction for 2 weeks then 5lb lifting restriction for additional 1 week. He would be off work for about 3-4 weeks. Edcuated that with his elevated A1C he is at an increased of infection and as it is elective we can weight for it to come down. he does not wish to wait.? Reviewed the pre- operative plans with the patient. Risks and benefits of the procedure were fully explained, including but not limited to infection, neurovascular injury, continued pain/symptoms, arthritis, stiffness, need for further surgery, re- injury, DVT, PE, general risks of anesthesia, and loss of limb or life, incisional hypersensitivity pillar pain.? the patient understands all the risks and does wish to proceed with written consent. He does wish to proceed with the right wrist and then 4 weeks later have the left wrist performed. Follow up 2 weeks post op or sooner if pain, swelling, numbness or associated symptoms, or concerns develop.? All questions answered. Patient in agreement of plan. 08/17/22 1507 <Electronically signed by Flaco Marquez DO> Date Flaco Marquez DO Cosignzaid Signature: Date (if applicable) ? CC: ? ~ I have examined the patient and the H&P has been reviewed. There are no clinical changes since date of exam.
[2022-09-02 11:51] LABS: Bedside Glucose 150 mg/dL (74-106)
[2022-09-02] MEDS: Bupiv/Epi 0.25% 30 ML Vial (12:16)
--- NOTE | 2022-09-02 12:30 | PCM.OP.BLANK ---
Operative Report Date of Procedure: 09/02/22 Preoperative diagnosis; right carpal tunnel syndrome Postoperative diagnosis; same Procedure: Right open carpal tunnel release Anesthesia: Local with MAC Tourniquet time; 10 minutes 250 mm Hg Complications: None Indication for procedure; This is a 42-year-old male with long-standing symptoms consistent with carpal tunnel syndrome the patient did have electrodiagnostic evidence of this and has failed conservative treatment. Risks benefits and alternatives were reviewed including risks of bleeding infection nerve artery tissue damage need for further surgery and continued pain and symptoms, hypersensitivity to scar and Pillar pain. Procedure; The patient was met in the preoperative holding area the operative extremity was identified by both patient and physician and was marked the patient was met by anesthesia and brought back to the operating room and transferred to the operating table in the supine position. Anesthesia was started. A well-padded tourniquet was placed on the operative upper extremity. The patient was prepped and draped in the usual sterile fashion. A timeout was called to ensure the proper patient procedure and extremity were being contemplated. 0.5 percent lidocaine with epinephrine was injected into the incisional area. An Esmarch was used to exsanguinate the extremity. The tourniquet was inflated to 250 mmHg. A midline incision was made with a 15 blade scalpel between the thenar and hypothenar eminence. This was carried down through the skin and subcutaneous tissue. Jael retractors were then used, a deep blade scalpel was used to make a deep incision in the palmar aponeurosis. The jael retractors were then placed deep to this and the transverse carpal ligament was identified a perforation was made with a scalpel and a Littler scissors were used to complete the release of the transverse carpal ligament distally under direct visualization with the tips facing ulnarly until the perivascular fat was reached. Then turning our attention proximally using a tension slide technique the proximal extent of the transverse carpal ligament was released . There was noted to be hourglass configuration to the median nerve and hypertrophy of the transverse carpal ligament without other findings. The wound was thoroughly irrigated and was closed with 4-0 nylon vertical mattress stitches. Dressing was applied in the form of xeroform 4 x 4, web roll and an hermes wrap. Tourniquet was let down there is no intraoperative complications patient tolerated the procedure well and was transferred to the PACU. All counts were correct.
--- NOTE | 2022-09-02 12:31 | DCINST_ITS ---
Discharge Instructions Diet Discharge Diet: No restrictions Dressing / Incision Call your doctor if you observe: Shortness of breath and Chest pain Additional Dressing/Incision Instructions:: Ice and elevate operative extremity next 72 hours. Keep dressing on clean and dry for 48 hours then may remove and allow warm soapy water to rinse over incision but do not submerge until sutures are out. Then apply bandaid over incision and change daily. encourage finger range of motion. Not lift more than 1/2 pound. Minimize narcotic use only as needed and directed, may use OTC NSAID and Tylenol to supplement/substitute for pain control. Follow Up Care Please Follow Up With: Flaco Marquez DO When: 2 weeks Test Results: Test results from this visit will be discussed in further detail at your follow- up appointment, if applicable. Discharge Plan Admission Primary Reason for Your Visit: Right carpal tunnel release Attending Provider: Flaco Marquez Primary Care Provider: Emelia Gomez Discharge Orders/Prescriptions Prescriptions: New oxycodone 5 mg tablet 5 - 10 mg PO Q4H PRN (Reason: pain) 3 Days Qty: 14 0RF Continued lisinopril 40 mg tablet 40 mg PO DAILY metformin 500 mg tablet extended release 24hr 1,000 mg PO BID Qty: 360 1RF pantoprazole 20 mg tablet,delayed release (DR/EC) 20 mg PO DAILY Levemir FlexTouch U-100 Insuln 100 unit/mL (3 mL) insulin pen 30 unit subcut QHS Trulicity 1.5 mg/0.5 mL pen injector 1.5 mg subcut SA (DME) Accu-Chek Guide test strips Strip See Rx Instructions .Route Qty: 100 6RF Rx Instructions: 3x/day (DME) lancets [Accu-Chek Softclix Lancets] Misc See Rx Instructions .Route Qty: 200 8RF Rx Instructions: BID (DME) pen needle, diabetic [BD Ultra-Fine Kelsy Pen Needle] 32 gauge x 5/32 needle See Rx Instructions .Route Qty: 100 3RF Rx Instructions: QHS cholecalciferol (vitamin D3) 1,250 mcg (50,000 unit) capsule 1,250 mcg PO QWEEK Qty: 24 0RF Referrals / Follow Up: Emelia Gomez MD [Primary Care Provider] - Disposition Disposition (needs filled in before D/C Order can be placed): Home, Self Care
== END 2022-09-02 13:36 | disposition home or self-care (01) ==
LOC: SDC 10:35 → AC 10:37
PROVIDERS: PCP Family Medicine; Referring Provider Orthopaedic Surgery; Visit Provider Orthopaedic Surgery
PROC: (CPT 64721; principal; 2022-09-02 12:00)
DX: G56.01 Carpal tunnel syndrome, right upper limb (principal); E11.9 Type 2 diabetes mellitus without complications; Z87.891 Personal history of nicotine dependence; Z79.84 Long term (current) use of oral hypoglycemic drugs; I10 Essential (primary) hypertension; F41.8 Other specified anxiety disorders
CPT/HCPCS: 64721; 01810; 82962; J7120

== ENCOUNTER 2022-10-06 05:50 | Day surgery (SDC) | payer BC, SELFPAY ==
[2022-10-06 06:42] VITALS: BP 120/86; PULSE 99; RESP 18; TEMP 36.3; O2SAT 96; BMI 43.9
[2022-10-06] MEDS: Lactated Ringers 1,000 ML 15 ML IV (06:50)
--- NOTE | 2022-10-06 07:20 | PCM.HP.BLA ---
History and Physical Date of Admission: 10/06/22 [facility] [address] [place] [address] OFFICE VISIT Date of Service:? 09/14/22 MR#: [id number] Acct: [id number] Name:YAMINI GAN Rep #: [id number] : 1980 ? ? Provider: Dr. Flaco Marquez, DO Age/Sex:? 42/M ? ? [place] [facility] [place] Status: Signed Intake Vital Signs ? 08/07/2313:32 09/02/2310:15 Height 6 ft 1 in 6 ft 1 in Intake Visit Reasons:?right hand Is patient in pain?: Yes Allergies [place] Allergy (Unknown, Uncoded 09/14/22 13:03) Cough Medications lisinopril 40 mg tablet 40 mg PO DAILY 08/05/20 [History Confirmed 09/02/22] metformin 500 mg tablet,extended release 24hr 1,000 mg PO BID #360 tabs 12/25/21 [Rx Confirmed 08/27/22] blood sugar diagnostic (Accu-Chek Guide test strips) #100 ea 06/11/22 [Rx Confirmed 08/17/22] lancets (Accu-Chek Softclix Lancets) #200 ea 06/12/22 [Rx Confirmed 08/17/22] pen needle, diabetic 32 gauge x 5/32 (BD Ultra-Fine Kelsy Pen Needle) #100 ea 06/12/22 [Rx Confirmed 08/17/22] pantoprazole 20 mg tablet,delayed release 20 mg PO DAILY 06/29/22 [History Confirmed 08/27/22] cholecalciferol (vitamin D3) 1,250 mcg (50,000 unit) capsule 1,250 mcg PO QWEEK #24 caps 07/01/22 [Rx Confirmed 08/27/22] dulaglutide 1.5 mg/0.5 mL subcutaneous pen injector (Trulicity) 1.5 mg subcut SA 08/27/22 [History Confirmed 08/27/22] insulin detemir U-100 100 unit/mL (3 mL) subcutaneous pen (Levemir FlexTouch U-100 Insulin) 30 unit subcut QHS 08/27/22 [History Confirmed 09/02/22] [facility] Medical History?(Updated 09/02/22 @ 12:[address] Flaco Marquez DO) Anxiety Asthma Back pain CPAP (continuous positive airway pressure) dependence Current moderate episode of major depressive disorder Diabetes Dietary restriction Essential hypertension Former smoker Gastric reflux Hypertension Impacted teeth Injury of head and neck Insulin dependent diabetes mellitus Marijuana use Neuropathy Plantar fasciitis Sleep apnea Tobacco use Wears glasses Surgical History? H/O inguinal hernia repair Hx of tonsillectomy Family History? Uncle Leukemia CVA (cerebral vascular accident) Social History? household members:? other details: parents housing:? house Smoking Status:? Former smoker quit date: 10/12/20 pack-years: 3 alcohol intake:? never what type of physical activity do you participate in:? none do you feel safe at home:? Yes HPI right hand Details: Parts of this documentation were recorded by a scribe, this documentation accurately reflects the service provided and the decisions made by me, Dr. Flaco Marquez DO 09/14/22 0802. YAMINI HELTON is a 42 year old M here today for s/p Right open carpal tunnel release dos 09/02/22. Patient denies any pain. Patient continues to have numbness and tingling which has improved. He complains of his skin being tight. Patients incision is healing with no redness or drainage. He denies any pain medications currently. Ortho Exam General General: Yes no acute distress Neurologic: Yes alert and Yes oriented x3 Psychologic: Yes reasonable and appropriate Right Wrist/Hand Skin/Wound: Yes healing WRIST: Incision well approximated sutures removed no concern for infection he has full finger and near full wrist range of motion Head: Normocephalic Atraumatic Chest: symmetrical rise, non-labored breathing, no audible wheeze Abdomen: no guarding, non-rigid Supplemental Info 08/05/2022 MRI cervical spine:Loss of normal lordotic curvature of uncertain significance.. No acute fracture or other significant bony pathology. Spinal stenosis at C5-C6 secondary to small left posterolateral/foraminal disc protrusion which appears stable perhaps slightly improved since previous exam. No other significant change? 07/13/2022 EMG bilateral upper extremity:This is an abnormal study. 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 The pathophysiology is demyelination. These findings are compatible with the clinical diagnosis of carpal tunnel syndrome. In addition, there is no electrophysiologic evidence of superimposed cervical radiculopathy in the right upper extremity. Coding Level of Care Code Global Post Op Diagnoses Orthopedic aftercare? Z47.89 Assessment and Plan Assessment and Plan (1) Orthopedic aftercare: Plan He should work on wrist range of motion. Patient continues to have a 5 pound lifting restriction for the next week and then may progress his lifting restrictions. Spoke with him about the healing process of nerve damage. Explained it may take a few months for him to regain the sensation into his fingers. Patient wishes to continue with his left carpal tunnel release. Reviewed the pre-operative plans with the patient. Risks and benefits of the procedure were fully explained, including but not limited to infection, neurovascular injury, continued pain, arthritis, stiffness, need for further surgery, re-injury, DVT, PE, general risks of anesthesia, and loss of limb or life. The patient understands all the risks and does wish to proceed with written consent. Follow up after his left carpal tunnel release or sooner if pain, swelling, numbness or associated symptoms, or concerns develop.? All questions answered. Patient in agreement of plan. 09/14/22 1353 <Electronically signed by Flaco Marquez DO> Date Flaco Marquez DO Cosigner Signature: Date (if applicable) ? CC: ? ~ I have examined the patient and the H&P has been reviewed. There are no clinical changes since date of exam.
[2022-10-06 07:26] LABS: Bedside Glucose 139 mg/dL (74-106)
[2022-10-06] MEDS: Bupiv/Epi 0.25% 30 ML Vial (07:42)
--- NOTE | 2022-10-06 07:48 | PCM.OP.BLANK ---
Operative Report Date of Procedure: 10/06/22 Preoperative diagnosis; left carpal tunnel syndrome Postoperative diagnosis; same Procedure: Left open carpal tunnel release Anesthesia: Local with MAC Tourniquet time; 10 minutes 250 mm Hg Complications: None Indication for procedure; This is a 42-year-old male with long-standing symptoms consistent with carpal tunnel syndrome the patient did have electrodiagnostic evidence of this and has failed conservative treatment. Risks benefits and alternatives were reviewed including risks of bleeding infection nerve artery tissue damage need for further surgery and continued pain and symptoms, hypersensitivity to scar and Pillar pain. Procedure; The patient was met in the preoperative holding area the operative extremity was identified by both patient and physician and was marked the patient was met by anesthesia and brought back to the operating room and transferred to the operating table in the supine position. Anesthesia was started. A well-padded tourniquet was placed on the operative upper extremity. The patient was prepped and draped in the usual sterile fashion. A timeout was called to ensure the proper patient procedure and extremity were being contemplated. 0.5 percent lidocaine with epinephrine was injected into the incisional area. An Esmarch was used to exsanguinate the extremity. The tourniquet was inflated to 250 mmHg. A midline incision was made with a 15 blade scalpel between the thenar and hypothenar eminence. This was carried down through the skin and subcutaneous tissue. Jael retractors were then used, a deep blade scalpel was used to make a deep incision in the palmar aponeurosis. The jael retractors were then placed deep to this and the transverse carpal ligament was identified a perforation was made with a scalpel and a Littler scissors were used to complete the release of the transverse carpal ligament distally under direct visualization with the tips facing ulnarly until the perivascular fat was reached. Then turning our attention proximally using a tension slide technique the proximal extent of the transverse carpal ligament was released . There was noted to be hypertrophy of the transverse carpal ligament. The wound was thoroughly irrigated and was closed with 4-0 nylon vertical mattress stitches. Dressing was applied in the form of xeroform 4 x 4, web roll and an hermes wrap. Tourniquet was let down there is no intraoperative complications patient tolerated the procedure well and was transferred to the PACU. All counts were correct.
--- NOTE | 2022-10-06 07:50 | DCINST_ITS ---
Discharge Instructions Diet Discharge Diet: No restrictions Dressing / Incision Call your doctor if you observe: Shortness of breath and Chest pain Additional Dressing/Incision Instructions:: Ice and elevate operative extremity next 72 hours. Keep dressing on clean and dry for 48 hours then may remove and allow warm soapy water to rinse over incision but do not submerge until sutures are out. Then apply bandaid over incision and change daily. encourage finger range of motion. Not lift more than 1/2 pound. Minimize narcotic use only as needed and directed, may use OTC NSAID and Tylenol to supplement/substitute for pain control. Follow Up Care Please Follow Up With: Flaco Marquez DO When: 2 weeks Test Results: Test results from this visit will be discussed in further detail at your follow- up appointment, if applicable. Discharge Plan Admission Primary Reason for Your Visit: Left carpal tunnel release Attending Provider: Flaco Marquez Primary Care Provider: Emelia Gomez Discharge Orders/Prescriptions Prescriptions: New oxycodone 5 mg tablet 5 mg PO Q4H PRN (Reason: pain) 7 Days Qty: 15 0RF Continued lisinopril 40 mg tablet 40 mg PO DAILY pantoprazole 20 mg tablet,delayed release (DR/EC) 20 mg PO DAILY Levemir FlexTouch U-100 Insuln 100 unit/mL (3 mL) insulin pen 30 unit subcut QHS Trulicity 1.5 mg/0.5 mL pen injector 1.5 mg subcut SA metformin 500 mg tablet extended release 24hr 1,000 mg PO QHS (DME) Accu-Chek Guide test strips Strip See Rx Instructions .Route Qty: 100 6RF Rx Instructions: 3x/day (DME) lancets [Accu-Chek Softclix Lancets] Misc See Rx Instructions .Route Qty: 200 8RF Rx Instructions: BID cholecalciferol (vitamin D3) 1,250 mcg (50,000 unit) capsule 1,250 mcg PO QWEEK Qty: 24 0RF (DME) pen needle, diabetic [BD Ultra-Fine Kelsy Pen Needle] 32 gauge x 5/32 needle See Rx Instructions .Route Qty: 100 3RF Rx Instructions: QHS Referrals / Follow Up: Emelia Gomez MD [Primary Care Provider] - Disposition Disposition (needs filled in before D/C Order can be placed): Home, Self Care
[2022-10-06 08:00] VITALS: BP 120/68; BP 120/86; PULSE 97; RESP 20; TEMP 36; O2SAT 91
[2022-10-06 08:05] VITALS: BP 120/86; BP 129/92; PULSE 90; RESP 18; O2SAT 94
[2022-10-06 08:10] VITALS: BP 109/60; BP 120/86; PULSE 90; RESP 18; O2SAT 92
[2022-10-06 08:15] VITALS: BP 110/68; BP 120/86; PULSE 90; RESP 18; TEMP 36.1; O2SAT 94
[2022-10-06 08:51] VITALS: BP 120/86
== END 2022-10-06 08:55 | disposition home or self-care (01) ==
LOC: SDC 05:50 → AC 05:50
PROVIDERS: PCP Family Medicine; Referring Provider Orthopaedic Surgery; Visit Provider Orthopaedic Surgery
PROC: (CPT 64721; principal; 2022-10-06 07:15)
DX: G56.02 Carpal tunnel syndrome, left upper limb (principal); Z79.4 Long term (current) use of insulin; E11.9 Type 2 diabetes mellitus without complications; Z87.891 Personal history of nicotine dependence; F41.8 Other specified anxiety disorders; I10 Essential (primary) hypertension; E78.5 Hyperlipidemia, unspecified
CPT/HCPCS: 64721; 01810; 82962; J7120; J2405

== ENCOUNTER 2022-11-05 15:30 | Outpatient (RCR) | payer BC, SELFPAY ==
--- NOTE | 2022-10-29 16:00 | HP.OTEVAL ---
Patient's Visit Information YAMINI HELTON is a 42 year old M, referred to Occupational Therapy by Dr. Flaco Marquez DO, with a diagnosis of CTS. Date of Evaluation: 10/27/22 Occupational Therapist: TRISTA Alcala/Hayde, CHT - Subjective This 42 year old male was seen for OT eval with dx CTS. Pt states he had issues with numbness and tingling for years. 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 September 05 2022 right CTR and left done 4 weeks later. pt works at [employer]- operate [employer]. 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 pt would like to get his strength up to return to work - ADLs Comments: pt lives with parents and they have helped pt with laundry cooking and cleaning-. pt states he is now IND with shower/bathing and dressing-. pt IND with driving. pt states he is only playing his video games about 2 hours a day- but use to play for 6 hours at a time. - Pain right 0 Pain Intensity Range: 0, 4 left hand 0 Pain Intensity Range: 0, 4 - ROM Wrist: right 65/65 left 65/55 - Strength Gis Web Developer: right 60# left 55# with discomfort Lateral Pinch: right 10# left 10# Tripod Pinch: right 10# left 10# - Sensation Thumb: right 2.83 left 2.83 interpretation normal sensation Index: right 2.83 left 2.83 interpretation normal sensation Middle: right 2.83 left 2.83 interpretation normal sensation Ring: right 2.83 left 2.83 interpretation normal sensation Little: right 2.83 left 2.83 interpretation normal sensation - Quick DASH-Disab of Arm,Shoulder& Hand Quick DASH Score: 63.3325 - Goals Goal:Daily scar massage when approriate: Yes Goal:Gis Web Developer/Pinch strength at least 75% of unaffected hand: Yes Goal:No pain with affected hand use: Yes Goal:Full use of affected hand in daily activities including: Yes Goal:Decrease scar hypersensitivity: Yes - Rehabilitation General Assessment: pt is s/p 7 weeks 6 days from right CTR and 3 weeks s/p on left CTR. pt reports pain soreness and weakness liming his ind.with home mtg. tasks. pt would benefit from skilled OT services 2-3x week for 2-4 weeks to increase pts strength to return pt to PLOF. Pt agrees with POC. Rehabilitation Potential: Good - Anticipated Interventions A/AAROM/PROM, Strengthening, Scar Care, Triggerpoint Release, Sensory Retraining, Modalities, Joint Protection/Energy Conservation, Ergonomic Education, Fine Motor Coord/Naresh, Sensory Stimulation, Education re Diagnosis, Home Program - Visit Plan Frequency: 2-3x /Week Duration: 4 Weeks TEXT: Thank you for the opportunity to evaluate your patient. For Medicare and Medicare HMO plans, please review the plan of care and approve it. It will need to be FAXED BACK to us at [phone] for Medicare purposes. Please let me know if there are questions or concerns regarding this plan of care. Physician Signature: Date:
--- NOTE | 2023-01-21 14:31 | HP.OT.NRP ---
Patient Information Patient Information: YAMINI HELTON was seen in my office for initial evaluation on 10/27/22. The following Plan of Care was established for this patient: POC Established Initial Frequency: 2-3x /Week Initial Duration: 4 Weeks Plan: Continue POC. 4 weeks (2-3x week) Anticipated Interventions Anticipated Interventions: A/AAROM/PROM, Strengthening, Scar Care, Triggerpoint Release, Sensory Retraining, Modalities, Joint Protection/Energy Conservation, Ergonomic Education, Fine Motor Coord/Naresh, Sensory Stimulation, Education re Diagnosis and Home Program Last Seen Last Seen: This patient was last seen in our office 11/05/22. Pertinent comments regarding their Occupational therapy will appear below: pt was seen for 4 OT sessions last one he cancelled. No further apts scheduled and due to time lapse in services pt is d/c at this time. At this point I will be discontinuing this patient from occupational therapy. I would be happy to see this patient again in the future if found appropriate by the physician. Thank you! Monique Rodrigues, OTR/L, CHT
== END 2022-11-05 19:00 | disposition home or self-care (01) ==
LOC: OT 15:30
PROVIDERS: PCP Family Medicine; Referring Provider Orthopaedic Surgery; Visit Provider Orthopaedic Surgery
DX: Z98.890 Other specified postprocedural states (principal)
CPT/HCPCS: 97110; 97166

== ENCOUNTER 2023-10-17 09:10 | Emergency (ER) | payer SELFPAY ==
[2023-10-17 09:11] VITALS: BP 160/108; PULSE 99; RESP 18; TEMP 35.9; O2SAT 98; BMI 42.9
--- NOTE | 2023-10-17 09:18 | EKG12_ITS ---
Test Reason : CP Blood Pressure : / mmHG Vent. Rate : 088 BPM Atrial Rate : 088 BPM P-R Int : 182 ms QRS Dur : 082 ms QT Int : 354 ms P-R-T Axes : 052 008 064 degrees QTc Int : 428 ms Normal sinus rhythm Normal ECG Confirmed by JOSE RAFAEL WELCH, MONICA ([id number]), acquisitions editor ANCELMO BARAKAT ([id number]) on 10/18/2023 7:02:53 AM Referred By: Confirmed By:MONICA MANTILLA MD
--- NOTE | 2023-10-17 09:18 | RAD_ITS ---
HISTORY: chest pain. TECHNIQUE: XR Chest 1 View. COMPARISON: 06/10/2021. FINDINGS: CARDIOMEDIASTINAL BORDERS: Cardiac silhouette within normal limits in size. Mediastinal contour unremarkable. LUNGS: Radiographically clear. PLEURA: No pleural effusion or pneumothorax seen. OSSEOUS STRUCTURES: Unremarkable. RAD/Chest 1 View (Portable) IMPRESSION: No acute cardiopulmonary process identified. Electronically Signed: Niurka Hernandez MD at 10:06 EDT ,
[2023-10-17 09:38] LABS: Absolute Lymphocyte Count 4.86 X10^3/uL (0.83-4.51); Absolute Neutrophil Count 6.1 X10^3/uL (2.0-7.7); Basophil# 0.07 X10^3/uL; Basophil% 0.6 % (0-1); Eosinophil# 0.36 X10^3/uL; Eosinophils% 2.9 % (0-5); Hematocrit 44.7 % (40-54); Hemoglobin 14.9 g/dL (13.0-16.5); Lymphocyte # 4.86 X10^3/ul (0.83-4.51); Lymphocyte % 39.1 % (19-41); Mean Corp Hgb Conc 33.3 g/dL (32-36); Mean Platelet Vol. 9.5 fl (6.2-12.0); Monocyte# 1.03 X10^3/uL; Monocyte% 8.3 % (0-10); NRBC Flagged by Analyzer 0 % (0-5); Neutrophil # 6.07 X10^3/uL (2.7-7.7); Neutrophil % 48.9 % (47-70); Platelet Count 330 K/mm3 (150-450); RBC Distribution Width CV 12.5 % (11.6-14.6); Red Blood Count 5.14 M/mm3 (4.6-6.2); White Blood Count 12.4 K/mm3 (4.4-11.0)
[2023-10-17 10:00] LABS: Anion Gap 9 (5-15); BUN 17 mg/dL (7-18); BUN/Creat Ratio 18.7 RATIO (10-20); Calcium,Total 9.2 mg/dL (8.5-10.1); Chloride 103 mmol/L (98-107); Creatinine, Serum 0.91 mg/dL (0.70-1.30); EST Glomerular Filtration Rate 97 mL/min (>60); Est Glom Filt Rate - Afr Amer 118 mL/min (>60); Estimated Creatinine Clearance 159.12 ml/min; Glucose 136 mg/dL (74-106); Potassium 3.6 mmol/L (3.5-5.1); Sodium Level 139 mmol/L (136-145); Troponin-I HS (w/2H Reflex) < 3 pg/mL (3.0-78.0)
[2023-10-17 10:57] VITALS: BP 136/90; PULSE 92; RESP 14; TEMP 36; O2SAT 97
[2023-10-17 11:35] LABS: Reflex Troponin-HS? (from REC) Y
--- NOTE | 2023-10-17 11:56 | ED.VIS.CHEST ---
HPI History of Present Illness Chief Complaint: Chest Pain Narrative Narrative: 43-year-old male presenting with chest pain. It is retrosternal and left-sided. Patient states he has had a history of this in the last month. He states that 1 time about a month ago he was at work and he had a really severe episode of chest pain. He states the pain has been constant for the last month although it waxes and wanes in severity. He is not lightheaded, dizzy, short of breath. Patient states that he also notices that every time he eats something he gets pain in the epigastric area. It is not burning in nature. It feels achy in nature. He states it starts about 2 to 3 minutes after he starts to eat. He has been trying to avoid acidic food and states that he when he tries to drink lemonade or eat red sauce it starts to hurt. Patient concerned that he might have a gastric ulcer. He used to be on a PPI but states he lost his insurance and does not have any healthcare coverage. Patient states has been off this for some time now. He does state the pain radiates to the left upper quadrant and not the right upper quadrant. No history of DVT/PE and no risk factors. [facility] Medical History Anxiety Asthma Back pain CPAP (continuous positive airway pressure) dependence Current moderate episode of major depressive disorder Diabetes Dietary restriction Essential hypertension Former smoker Gastric reflux Hypertension Impacted teeth Injury of head and neck Insulin dependent diabetes mellitus Marijuana use Neuropathy Plantar fasciitis Sleep apnea Tobacco use Wears glasses Home Medications blood sugar diagnostic (Accu-Chek Guide test strips) #100 ea 06/11/22 [Rx Last Taken 10/05/22] lancets (Accu-Chek Softclix Lancets) #200 ea 06/12/22 [Rx Last Taken 10/05/22] pantoprazole 20 mg tablet,delayed release 20 mg PO DAILY 06/29/22 [History Last Taken Unknown] pen needle, diabetic 32 gauge x (BD Ultra-Fine Kelsy Pen Needle) #100 ea 10/05/22 [Rx Last Taken 10/05/22] insulin detemir U-100 100 unit/mL (3 mL) subcutaneous pen 30 unit (0.3 mL) subcut QHS #27 mL 11/02/22 [Rx Last Taken Unknown] lisinopril 40 mg tablet 40 mg PO DAILY #30 tabs 04/21/23 [Rx Last Taken Unknown] metformin 500 mg tablet,extended release 24hr (osmotic) 1,000 mg (2 x 500 mg) PO ONCE #180 tabs 04/21/23 [Rx Last Taken Unknown] propranolol 20 mg tablet 20 mg PO QHS #30 tabs 04/21/23 [Rx Last Taken Unknown] ondansetron 4 mg disintegrating tablet 4 mg PO Q8H PRN PRN Nausea #20 tabs 10/17/23 [Rx Last Taken Unknown] pantoprazole 20 mg tablet,delayed release (Protonix) 20 mg PO DAILY #60 tabs 10/17/23 [Rx Last Taken Unknown] Allergy/AdvReac Type Severity Reaction Status Date / Time Environmental Allergies: Allergy cough Verified 10/17/23 09:11 Uncoded Family History Uncle Leukemia CVA (cerebral vascular accident) Surgical History H/O inguinal hernia repair History of carpal tunnel surgery of right wrist Hx of tonsillectomy Social History household members: other details: parents housing: house Smoking Status: Former smoker quit date: 10/12/20 pack-years: 3 alcohol intake: never what type of physical activity do you participate in: none do you feel safe at home: Yes ROS ROS ED Constitutional Constitutional ED: Denies chills, fever(s) or sweats Eyes Eyes: Denies blurry vision or change in vision ENT ENT ED: Denies ear pain or sore throat Cardiovascular Cardiovascular: Denies chest pain, palpitations or racing heartbeat Respiratory/Chest Respiratory/Chest: Denies cough, dyspnea or sputum Gastrointestinal Gastrointestinal: Reports abdominal pain and nausea; Denies constipation, diarrhea or vomiting Genitourinary Genitourinary ED: Denies dysuria, hematuria or urinary frequency Musculoskeletal Musculoskeletal: Denies arthralgias, myalgias or neck pain Integumentary Denies abscess, Abrasions or rash Neurologic Neurologic: Denies headache(s), paresthesias or weakness Psychiatric Psychiatric: Denies anxiety, depression, suicidal ideation or suicidal thoughts Endocrine Endocrinology: Denies polydipsia or polyuria EXAM Physical Exam Const Vital Signs: 10/17/23 09:11 10/17/23 09:18 10/17/23 09:51 Temperature 96.7 F L Temperature Source Temporal Pulse Rate 99 Respiratory Rate 18 Respiratory Effort Normal Non-Labored Blood Pressure 160/108 H Blood Pressure Mean 125 Pulse Ox 98 Oxygen Delivery Method Room Air Room Air 10/17/23 10:57 Temperature 96.8 F L Temperature Source Pulse Rate 92 Respiratory Rate 14 Respiratory Effort Blood Pressure 136/90 H Blood Pressure Mean 105 Pulse Ox 97 Oxygen Delivery Method Positive well nourished General Appearance ED: NAD; Negative for pallor HEENT Reports moist mucous membranes Eyes PERRL and EOMs intact bilaterally Chest Wall inspection of chest normal and palpation of chest normal Resp normal respiratory effort and clear to auscultation bilaterally Auscultation: Negative for rales, rhonchi or wheezes Cardio regular rate GI normal to inspection, nondistended, normoactive bowel sounds and soft to palpation Neuro oriented x3 and CN's II-XII intact bilaterally Psych mental status grossly normal Skin no rashes or lesions noted General Skin Exam: Negative for jaundice or pallor Heart Score History: Slightly/Non-Suspicious ECG: Normal Age: </= 45 years Risk Factors: >/= 3 Risk Factors or History of CAD Troponin: </= Normal Limit Score: 2 MDM MDM MDM Narrative Medical decision making narrative: 43-year-old male presented with chest pain. Initially thought it was something cardiac related but after discussion with him he feels it is more of a stomach issue at this point. He states he might have panicked because he was using Alector to diagnose himself. We did undergo a cardiac workup and his white blood cell count is 12.4. Hemoglobin 14.9. High-sensitivity troponin less than 3 with greater than a month of pain so I do not believe it is a delta troponin. Chest x-ray was negative. PERC negative. We did discuss his diet at length to help control his symptoms since it does appear to be GI related. I will put him back on a PPI. He was given Zofran as needed for nausea. He was given referral to Dr. Carroll as needed. Impression: 1. Chest pain 2. Abdominal pain 3. History of GERD Lab Data Attestation: I reviewed the patient's lab results. Labs: Laboratory Results - last 24 hr 10/17/23 09:30 WBC 12.4 H RBC 5.14 Hgb 14.9 Hct 44.7 MCV 87.0 MCH 29.0 MCHC 33.3 RDW Std Deviation 40.0 RDW Coeff of [place] 12.5 Plt Count 330 MPV 9.5 Immature Gran % (Auto) 0.200 Neut % (Auto) 48.9 Lymph % (Auto) 39.1 [place] % (Auto) 8.3 Eos % (Auto) 2.9 Baso % (Auto) 0.6 Absolute Neuts (auto) 6.1 Absolute Lymphs (auto) 4.86 H Nucleated RBC % 0 Sodium 139 Potassium 3.6 Chloride 103 Carbon Dioxide 27.0 Anion Gap 9 BUN 17 Creatinine 0.91 Estim Creat Clear Calc 159.12 Est GFR (MDRD) Af Amer 118 Est GFR (MDRD) Non-Af 97 BUN/Creatinine Ratio 18.7 Glucose 136 H Calcium 9.2 Troponin I High Sens < 3 L Radiography Diagnostic Testing: Clinical Impression(s) from Imaging Studies Chest X-Ray 10/17/23 09:18 IMPRESSION: No acute cardiopulmonary process identified. Electronically Signed: Niurka Hernandez MD at 10:06 EDT Reading Location ID and State: [facility] / [place] Tel , Service support , Discharge Plan Triage Chief Complaint: Chest Pain ED Provider: Jason Mendoza Dx/Rx/DC Orders Instructions: ED Chest Pain, Noncardiac, ED Gastritis Ulcer No Abx Prescriptions: New pantoprazole [Protonix] 20 mg tablet,delayed release (DR/EC) 20 mg PO DAILY Qty: 60 0RF ondansetron 4 mg tablet,disintegrating 4 mg PO Q8H PRN PRN (Reason: Nausea) Qty: 20 0RF No Action pantoprazole 20 mg tablet,delayed release (DR/EC) 20 mg PO DAILY propranolol 20 mg tablet 20 mg PO QHS Qty: 30 5RF lisinopril 40 mg tablet 40 mg PO DAILY Qty: 30 5RF metformin 500 mg tablet extended release 24hr 1,000 mg PO ONCE Qty: 180 1RF Rx Instructions: 1,000 mg with supper (DME) Accu-Chek Guide test strips Strip See Rx Instructions .Route Qty: 100 6RF Rx Instructions: 3x/day (DME) lancets [Accu-Chek Softclix Lancets] Misc See Rx Instructions .Route Qty: 200 8RF Rx Instructions: BID (DME) pen needle, diabetic [BD Ultra-Fine Kelsy Pen Needle] 32 gauge x 5/32 needle See Rx Instructions .Route Qty: 100 3RF Rx Instructions: QHS Levemir FlexTouch U100 Insulin 100 unit/mL (3 mL) insulin pen 30 unit subcut QHS Qty: 27 1RF Primary Care Provider: Bradly Lock Referrals: Bradly Lock MD [Primary Care Provider] - Eduardo Carroll DO [Med Staff - Active Staff] - 3-5 Days Disposition Disposition: Home, Self Care Discharge Date/Time: 10/17/23 10:58
== END 2023-10-17 10:58 | disposition home or self-care (01) ==
PROVIDERS: Emergency Provider Student in an Organized Health Care Education/Training Program; PCP Family Medicine; Visit Provider Student in an Organized Health Care Education/Training Program
DX: R07.9 Chest pain, unspecified (principal); Z79.4 Long term (current) use of insulin; I10 Essential (primary) hypertension; Z87.891 Personal history of nicotine dependence; K21.9 Gastro-esophageal reflux disease without esophagitis; R10.13 Epigastric pain; R10.12 Left upper quadrant pain; R10.11 Right upper quadrant pain; Z79.84 Long term (current) use of oral hypoglycemic drugs
CPT/HCPCS: 71045; 80048; 84484; 85025; 93005; 99285; A4216

== ENCOUNTER → 2024-06-26 | Outpatient (CLI) | payer BC, SELFPAY ==
[2024-06-26 12:21] LABS: Hematocrit 43.8 % (40-54); Hemoglobin 15.1 g/dL (13.0-16.5); Mean Corp Hgb Conc 34.5 g/dL (32-36); Mean Corpuscular Hgb 29.3 pg (27.0-32.0); Platelet Count 278 K/mm3 (150-450); RBC Distribution Width CV 12.5 % (11.6-14.6); RBC Distribution Width SD 38.5 fl (35.1-43.9); Red Blood Count 5.15 M/mm3 (4.6-6.2); White Blood Count 12.6 K/mm3 (4.4-11.0)
[2024-06-26 12:54] LABS: Anion Gap 7 (5-15); BUN 14 mg/dL (7-18); BUN/Creat Ratio 14.7 RATIO (10-20); Calcium,Total 9.3 mg/dL (8.5-10.1); Chloride 104 mmol/L (98-107); Cholesterol 179 mg/dL (200); Creatinine, Serum 0.95 mg/dL (0.70-1.30); EST Glomerular Filtration Rate 92 mL/min (>60); Est Glom Filt Rate - Afr Amer 112 mL/min (>60); Glucose 101 mg/dL (74-106); High Density Lipoprotein 50 mg/dL; Sodium Level 138 mmol/L (136-145); Triglycerides 181 mg/dL; Very Low Density Lipoprotein 36 mg/dL (5-40)
== END | disposition home or self-care (01) ==
LOC: MTLAB 09:38
PROVIDERS: PCP Family Medicine; Referring Provider Family Medicine; Visit Provider Family Medicine
DX: Z00.00 Encounter for general adult medical examination without abnormal findings (principal)

== ENCOUNTER → 2025-03-15 | Outpatient (CLI) | payer SELFPAY ==
[2025-03-15 18:16] LABS: Anion Gap 13 (5-15); BUN 16 mg/dL (4-19); BUN/Creat Ratio 21.5 RATIO (10-20); Calcium,Total 9.3 mg/dL (7.6-11.0); Carbon Dioxide 22.7 mmol/L (21.0-32.0); Chloride 102 mmol/L (98-108); Glucose 137 mg/dL (70-99); Potassium 3.8 mmol/L (3.3-5.1)
== END | disposition home or self-care (01) ==
LOC: MFPLAB 15:38
PROVIDERS: PCP Family Medicine; Referring Provider Nurse Practitioner Family; Visit Provider Nurse Practitioner Family
DX: I10 Essential (primary) hypertension (principal); E11.65 Type 2 diabetes mellitus with hyperglycemia; Z79.4 Long term (current) use of insulin
CPT/HCPCS: 36415; 80048